=== PATIENT | female | born 1990 | race Two or more races ===

== ENCOUNTER 2017-02-19 12:28 | Emergency (ER) | payer MEDICAID, OTHER ==
[~2017-02-19] VITALS: Ht 160 cm; Wt 84.0 kg
[~2017-02-19 12:28] MED LIST: PREN-88 PO
[2017-02-19 13:30] LABS: BASOPHILS % 0.4 % (0.0-2.0); EOSINOPHILS % 3.8 % (0.0-5.0); HEMATOCRIT. 34.1 % (36.0-48.0); HEMOGLOBIN. 11.9 g/dL (12.0-16.0); LYMPHOCYTES % 13.4 % (20.0-50.0); MEAN CORPUSCULAR HEMOGLOBIN 30.7 pg (28.0-32.0); MEAN CORPUSCULAR HGB CONC 34.8 g/dL (31.0-37.0); MEAN CORPUSCULAR VOLUME 88.2 fL (81.0-99.0); MEAN PLATELET VOLUME 9.8 fl (7.4-10.4); MONOCYTES % 7.5 % (2.0-8.0); NEUTROPHILS % 74.9 % (40.0-76.0); PLATELET 166 x1000/uL (130-400); RED BLOOD CELL COUNT 3.87 mill/uL (4.2-5.4); RED CELL DISTRIBUTION WIDTH 13.3 % (11.6-14.6); WHITE BLOOD COUNT 7.9 x1000/uL (4.5-11.0)
[2017-02-19] MEDS ORDERED: ACETAMINOPHEN 325MG TABLET PO ONE (13:30)
[2017-02-19 13:41] LABS: D-DIMER 1.81 mg/L FEU (<0.50); PARTIAL THROMBOPLASTIN TIME 26.4 sec (24.0-34.0); PROTHROMBIN TIME 10.2 sec
[2017-02-19 13:51] LABS: ALANINE AMINOTRANSFERASE 20 IU/L (13-61); ALBUMIN 2.8 g/dL (3.4-5.0); ANION GAP 15; CALCIUM 8.7 mg/dL (8.5-10.1); CARBON DIOXIDE 23 mEq/L (21-32); CHLORIDE 106 mEq/L (98-107); INDEX HEMOLYSI 1 (1-3); INDEX ICTERIC 1 (1-4); INDEX LIPEMIC 1 (1-3); NT PRO B-TYPE NATRIURETIC PEP 25 pg/mL (5-125); TROPONIN I < 0.02 ng/mL (0.00-0.04); eGFR > 60 mL/min (>60)
[2017-02-19 13:52] LABS: UREA NITROGEN BLOOD 4 mg/dL (7-21)
[2017-02-19 16:30] VITALS: BP 122/70
== END 2017-02-19 16:45 | disposition home or self-care (01) ==
LOC: ER 13:44
DX: O26.893 Other specified pregnancy related conditions, third trimester (principal); R07.89 Other chest pain; R05 Cough; R06.02 Shortness of breath; Z3A.33 33 weeks gestation of pregnancy
CPT/HCPCS: 36415; 71010; 78580; 80053; 83880; 84484; 85025; 85379; 85610; 85730; 93005; 93970; 99285; A9540; Z7610